=== PATIENT | female | born 1960 | race Caucasian/White ===

== ENCOUNTER → 2018-04-24 | Day surgery (SDC) | payer BC ==
[~2018-04-24] MED LIST: BENZONATATE100 MG PO; CLONAZEPAM0.5 MG PO; CRESTOR10 MG PO; DEXILANT60 MG PO; FENTANYL CITRATE/PF 100MCG/2 ML INJ ONE; HYOSCYAMINE SULFATE 0.5 MG/ML AMP ONE; IPRATROPIU0.2 MG/1 M INH; LEVOCETIRIZINE D5 MG PO; LEXAPRO10 MG PO; LOSARTAN-HCTZ1 EAC2 PO; METOCLOPRAMIDE HCL 10 MG/2ML VIAL ONE; MIDAZOLAM HCL 2 MG/2 ML VIAL ONE; NAPROXEN PO; NYQUIL PO; OCEAN SPRAY; PROPOFOL IV EMULSION 10 MG/ML 50 ML VIAL ONE; PSEUDOEPHEDRINE30 MG PO; SINGULAIR10 MG PO; SOMA350 MG PO; [UNRECOGNIZED DRUG - OTHER] PO
[2018-04-24 11:15] VITALS: BP 97/69
--- NOTE | 2018-04-24 12:07 | Operative Report ---
DATE OF PROCEDURE: April 24, 2018 PROCEDURES PERFORMED: Esophagogastroduodenoscopy with biopsies and a colonoscopy with polypectomy. INDICATIONS FOR ESOPHAGOGASTRODUODENOSCOPY: Acid reflux. INDICATIONS FOR COLONOSCOPY: Colorectal cancer screening. MEDICATION: Patient was done under MAC. Please see anesthesiologist's note. PROCEDURE: With the patient in the left lateral decubitus position, flexible fiberoptic Olympus gastroscope was introduced into the esophagus under direct visualization without any difficulty. Minute tongues of velvety red mucosa were noted to extend proximally from the GE junction. Biopsies were obtained to rule out Patton's. The scope was then advanced with ease into the stomach traversing a small sliding hiatal hernia. The mucosa overlying the antrum and the body revealed some patchy erythema and low-grade edema and biopsies were obtained sent to stain for H. pylori. The pylorus was of normal contour and shape, was intubated with ease and the scope was advanced all the way to the 2nd portion of the duodenum. The scope was then withdrawn slowly. Mucosa overlying the proximal 2nd portion and the duodenal bulb appeared to be within normal limits. The scope was then withdrawn back into the stomach and retroflexed. Mucosa overlying the fundus and the cardia appeared to be within normal limits. The scope was then straightened out. The stomach was decompressed. The scope was subsequently withdrawn. Patient tolerated the procedure well. IMPRESSIONS 1. Distal esophagitis, mild. 2. Rule out Patton's esophagus. 3. Small sliding hiatal hernia. 4. Gastritis, biopsied. Biopsies sent to stain for Helicobacter pylori. PLAN: Follow up histology. Increase Dexilant to 60 mg 1 p.o. a.c. b.i.d. Patient was then turned around. After adequate lubrication of the anal canal, a flexible fiberoptic Olympus colonoscope was inserted into the rectum with ease and advanced all the way to the cecum. The scope was then withdrawn slowly. Mucosa overlying the cecum, ascending colon, transverse colon appeared to be within normal limits. The descending also grossly appeared to be within normal limits. One polyp was snared and 3 polyps were hot biopsied from the sigmoid colon. Diverticular disease was noted to involve the distal descending and the sigmoid colon. One polyp was snared from the rectum. The scope was then retroflexed into the distal rectum and small internal hemorrhoids were noted, none of which was actively bleeding. The scope was then straightened out. It was subsequently withdrawn. Patient tolerated the procedure well. IMPRESSIONS 1. Diverticulosis. 2. Sigmoid colon polyps times 4. One snared and 3 hot biopsied. 3. Rectal polyp snared. 4. Internal hemorrhoids, none actively bleeding. PLAN: Follow up histology. Initiate high-fiber, low-fat diet. Initiate a fiber supplement. Patient will need a followup colonoscopy in 3 years. Job#: [id number] TA cc:ERIN GRIFFIN DO
== END | disposition home or self-care (01) ==
LOC: OR 06:43
PROVIDERS: ATTEND Internal Medicine Gastroenterology
DX: Z12.11 Encounter for screening for malignant neoplasm of colon (principal); D12.5 Benign neoplasm of sigmoid colon; K62.1 Rectal polyp; K29.50 Unspecified chronic gastritis without bleeding; K22.8 Other specified diseases of esophagus; K21.9 Gastro-esophageal reflux disease without esophagitis; K20.9 Esophagitis, unspecified; K44.9 Diaphragmatic hernia without obstruction or gangrene; K57.30 Diverticulosis of large intestine without perforation or abscess without bleeding; K64.8 Other hemorrhoids; J44.9 Chronic obstructive pulmonary disease, unspecified; I10 Essential (primary) hypertension; E78.5 Hyperlipidemia, unspecified; F32.9 Major depressive disorder, single episode, unspecified; F41.9 Anxiety disorder, unspecified; Z88.6 Allergy status to analgesic agent; Z88.8 Allergy status to other drugs, medicaments and biological substances; Z01.810 Encounter for preprocedural cardiovascular examination; Z68.32 Body mass index [BMI] 32.0-32.9, adult
CPT/HCPCS: 43239; 45384; 45385; 93005; J1980; J2250; J2765; 45378

== ENCOUNTER → 2018-07-30 | Outpatient (CLI) | payer BC ==
[~2018-07-30] MED LIST changes: -FENTANYL CITRATE/PF 100MCG/2 ML INJ ONE; -HYOSCYAMINE SULFATE 0.5 MG/ML AMP ONE; -METOCLOPRAMIDE HCL 10 MG/2ML VIAL ONE; -MIDAZOLAM HCL 2 MG/2 ML VIAL ONE; -PROPOFOL IV EMULSION 10 MG/ML 50 ML VIAL ONE
--- NOTE | 2018-08-06 08:21 | Diagnostic Imaging Report ---
#[id number] - MGSCRBIL #BILATERAL DIGITAL SCREENING MAMMOGRAM WITH CAD: 07/30/2018 CLINICAL: Routine screening. Comparison is made to exams dated: 02/11/2013 mammogram and 12/29/2012 mammogram - [facility]. Current study contains 4 films. There are scattered fibroglandular elements in both breasts. Current study was also evaluated with a Computer Aided Detection (CAD) system. There are benign calcifications in both breasts. No significant masses, calcifications, or other findings are seen in either breast. There has been no significant interval change. IMPRESSION: BENIGN There is no mammographic evidence of malignancy. A 1 year screening mammogram is recommended. The patient will be notified by letter of the results. Jayant prado/twyla:08/05/2018 12:21:51 Band Saw Operator Cake Cutting: Deb BALES(R)(M), [facility] letter sent: Compared to Prior B9 Mammogram BI-RADS: 2 Benign
== END ==
LOC: MAMMO 10:27
PROVIDERS: ATTEND Family Medicine
DX: Z12.31 Encounter for screening mammogram for malignant neoplasm of breast (principal)
CPT/HCPCS: 77067

== ENCOUNTER → 2019-05-28 | Outpatient (CLI) | payer BC ==
--- NOTE | 2019-05-28 16:18 | Diagnostic Imaging Report ---
Exam: Bone mineral density study. History: Breast cancer, osteoporosis screening Comparison: Baseline December 29, 2012. Discussion: Evaluation of the left hip and lumbar spine was performed. The study is technically adequate. The patient's fracture risk is compared to an age-matched control. The patient denies prior surgery/fracture of the spine, hips or forearm. Left hip femoral neck bone mineral density: 0.9 g/cm2, T-score is 0.1, Z-score is 1.3. Left hip total bone mineral density: 1.1 g/cm2, T-score is 0.8, Z-score is 1.7. A 12.4% decrease since baseline. Lumbar spine total bone mineral density: 1.1 g/cm2, T-score is 0.8, Z-score is 2. A 9.6% decrease since baseline. Impression: Bone mineralization by WHO Classification is normal, the fracture risk is not increased. Signed by: Dr. Bakari Winters D.O., M.M.M. on 05/28/2019 4:14 PM
--- NOTE | 2019-06-04 09:16 | Diagnostic Imaging Report ---
#[id number] - MGSCRBIL #BILATERAL DIGITAL SCREENING MAMMOGRAM WITH CAD: 05/28/2019 CLINICAL: Routine screening. Comparison is made to exams dated: 07/30/2018 mammogram, 02/11/2013 mammogram and 12/29/2012 mammogram - [facility]. There are scattered fibroglandular elements in both breasts. Current study was also evaluated with a Computer Aided Detection (CAD) system. There are benign lymph nodes in the left breast. No significant masses, calcifications, or other findings are seen in either breast. There has been no significant interval change. IMPRESSION: BENIGN There is no mammographic evidence of malignancy. A 1 year screening mammogram is recommended. The patient will be notified by letter of the results. DEANGELO pradhan/twyla:06/01/2019 16:16:53 Escrow Manager: Deb BALES(R)(M), [facility] letter sent: Compared to Prior B9 Mammogram BI-RADS: 2 Benign
== END ==
LOC: MAMMO 15:13
PROVIDERS: ATTEND Family Medicine
DX: Z12.31 Encounter for screening mammogram for malignant neoplasm of breast (principal); Z13.820 Encounter for screening for osteoporosis
CPT/HCPCS: 77067; 77080

== ENCOUNTER 2019-10-28 11:00 | Outpatient (RCR) | payer BC | END 2019-10-30 | LOC: OT 11:00 | PROVIDERS: ATTEND Psychiatry & Neurology Neurology | DX: R27.0 Ataxia, unspecified (principal); I63.9 Cerebral infarction, unspecified ==